=== PATIENT | female | born 1955 | race Caucasian/White ===

== ENCOUNTER → 2017-07-30 | Day surgery (SDC) | payer BC ==
[~2017-07-30] MED LIST: Acetaminophen/HYDROcodone 325-5 MG Tab PO PRN; Albuterol 0.083% 2.5 MG/3 ML Neb Soln NEB PRN; Cyclobenzaprine 10 MG Tab PO PRN; Dexamethasone 4 MG/ML 5 ML MDV ONE; EPINEPHrine 1 MG/ML 30 ML MDV ONE; EPINEPHrine 1 MG/ML SDV ONE; HYDROmorphone 0.5 MG/0.5 ML Syringe IVPUSH PRN; HYDROmorphone 0.5 MG/0.5 ML Syringe ONE; Ketorolac 30 MG/ML SDV ONE; Labetalol 100 MG/20 ML MDV ONE; Lactated Ringers 1,000 ML IV SCH; Lactated Ringers 1,000 ML ONE; Lidocaine 1% 4 ML ONE; Lidocaine 1%/Sod Bicarbonate in NS 8.4% 1 ML Syringe IDERM PRN; Midazolam 1 MG/ML 2 ML SDV ONE; Ondansetron 4 MG/2 ML SDV IVPUSH PRN; Ondansetron 4 MG/2 ML SDV ONE; Phenylephrine 1 MG in Sodium Chloride 0.9% 10 ML IV SCH; Propofol 200 MG/20 ML SDV ONE; Rocuronium 50 MG/5 ML Vial ONE; Ropivacaine 0.5% 5 MG/ML 30 ML SDV ONE; Sodium Chloride 0.9% 10 ML Syringe FLUSH PRN; ceFAZolin 1 GM Vial ONE; diphenhydrAMINE 50 MG/ML SDV IVPUSH PRN; ePHEDrine 50 MG/ML SDV IVPUSH PRN; fentaNYL 100 MCG/2 ML SDV IVPUSH PRN; fentaNYL 250 MCG/5 ML SDV ONE; hydrALAZINE 20 MG/ML SDV ONE
--- NOTE | 2017-07-30 08:20 | PCM.PREANE ---
Preanesthetic Assessment - Anesthesia/Transfusion/Family Hx Anesthesia History: Prior Anesthesia Without Reaction Family History of Anesthesia Reaction: No Transfusion History: No Prior Transfusion(s) Intubation History: Unknown - Review of Systems General: No Symptoms Pulmonary: No Symptoms (History of asthma: uses inhaler 1-2 times a month to every other month./weather dependent/seasonal allergies), Wheezing (on occasion) , Cough Cardiovascular: No Symptoms (History of HTN), Edema (on occasion in the lower extremities: none present today) Gastrointestinal: Constipation (concerns noted with pain medicaion) Neurological: No Symptoms (History of lower extremity edema) Other: Reports: Diabetes (AM blood [id number] @ 97), Thyroid Problems ( hypothyroid), Sinus Problem (History for past 3 weeks of sinus congestion and cough/resolved and better.) - Physical Assessment NPO Status Date: 07/29/17 NPO Status Time: 20:00 Pulse: 66 O2 Sat by Pulse Oximetry: 93 Respiratory Rate: 16 Blood Pressure: 139/82 Temperature: 36.3 C Height: 1.7 m Weight: 111 kg ASA Class: 2 Mental Status: Alert & Oriented x3 Airway Class: Mallampati = 2 Dentition: Reports: Normal Dentition, [place](s), Caries Thyro-Mental Finger Breadths: 3 Mouth Opening Finger Breadths: 3 ROM/Head Extension: Full Lungs: Clear to Auscultation, Normal Respiratory Effort Cardiovascular: Regular Rate, Regular Rhythm, No Murmurs - Lab Values: Laboratory Last Values MRSA (PCR) Negative 07/22/17 15:14 All lab values reviewed and noted and within acceptable ranges to proceed with scheduled procedure. - Imaging/EKG Impressions: EKG: SR rate= 67, first degree. CXR: unremarkable - Allergies Allergies/Adverse Reactions: Allergies Allergy/AdvReac Type Severity Reaction Status Date / Time No Known Allergies Allergy Verified 07/29/17 14:27 - Anesthesia Plan Pre-Op Medication Ordered: Beta Jasmyne Beta Jasmyne: Atenolol Med Last Dose Date: 07/30/17 Med Last Dose Time: 07:30 - Acknowledgements Anesthesia Type Planned: General Anesthesia (and a right interscalene block under US guidance for post operative pain control requested by Dr. Thompson.) Pt an Appropriate Candidate for the Planned Anesthesia: Yes Alternatives and Risks of Anesthesia Discussed w Pt/Guardian: Yes Pt/Guardian Understands and Agrees with Anesthesia Plan: Yes PreAnesthesia Questionnaire Cardiovascular History: Reports: Hypertension Respiratory History: Reports: Asthma Gastrointestinal History: Reports: Other (See Below) Other Gastrointestinal History: left inguinal hernia repair Genitourinary History: Reports: None [employer] TECH[employer]ICIAN History: Reports: None Musculoskeletal History: Reports: None Neurological History: Reports: None Psychiatric History: Reports: None Endocrine/Metabolic History: Reports: Diabetes, Type II, Hypothyroidism, Other ( See Below) Hematologic History: Reports: None Immunologic History: Reports: None Oncologic (Cancer) History: Reports: None Dermatologic History: Reports: Other (See Below) Other Dermatologic History: right lower leg surgery due3 to severe staph infection - Past Surgical History Head Surgeries/Procedures: Reports: None HEENT Surgical History: Reports: Tonsillectomy Cardiovascular Surgical History: Reports: Varicose Respiratory Surgical History: Reports: None GI Surgical History: Reports: Colonoscopy Female Surgical History: Reports: None Male Surgical History: Reports: None Endocrine Surgical History: Reports: None Neurological Surgical History: Reports: None Musculoskeletal Surgical History: Reports: None Oncologic Surgical History: Reports: None - SUBSTANCE USE Smoking Status *Q: Never Smoker Recreational Drug Use History: No - HOME MEDS Home Medications: Home Meds Albuterol [Proair HFA] 2 puff INH Q4H PRN 07/29/17 [History] Atenolol 25 mg PO DAILY 07/29/17 [History] Biotin 5,000 mcg PO DAILY 07/29/17 [History] Ca Carbonate/Vitamin D3/Vit K [Calcium + D Soft Chewable Tab] 2 tab PO DAILY [History] Fish Oil/Warren-3 Fatty Acids [Fish Oil 1,000 MG] 1 gm PO DAILY 07/29/17 [History ] Fluticasone Propionate [Flonase] 1 - 2 spray NASBOTH DAILY PRN 07/29/17 [History ] Furosemide 20 mg PO DAILY 07/29/17 [History] Levothyroxine 75 mcg PO DAILY 07/29/17 [History] Magnesium 250 mg PO DAILY 07/29/17 [History] Montelukast Sodium 10 mg PO DAILY 07/29/17 [History] Multivitamin [Daily Multiple Vitamin] 1 tab PO DAILY 07/29/17 [History] Potassium Gluconate 99 mg PO DAILY 07/29/17 [History] metFORMIN HCl [Metformin HCl] 500 mg PO BID 07/29/17 [History] - CURRENT (IN HOUSE) MEDS Current Meds: Current Medications Epinephrine HCl (Adrenalin) 3 mg .XX ONETIME ONE Stop: 07/30/17 11:46 Lactated Ringer's (Ringers, Lactated) 1,000 mls @ 125 mls/hr IV ASDIRECTED STACIE Stop: 07/30/17 23:00 Lidocaine/Sodium Bicarbonate (Buffered Lidocaine 1% In Ns 8.4%) 0.25 ml IDERM ONETIME PRN PRN Reason: Prior to IV Start Stop: 07/30/17 18:00 Sodium Chloride (Saline Flush) 10 ml FLUSH ASDIRECTED PRN PRN Reason: Keep Vein Open Stop: 07/30/17 18:00 Discontinued Medications Epinephrine HCl (Adrenalin) Confirm Administered Dose 1 mg .ROUTE .STK-MED ONE Stop: 07/30/17 07:35 Lidocaine HCl (Xylocaine-Mpf 1%) Confirm Administered Dose 4 mls @ as directed .ROUTE .STK-MED ONE Stop: 07/30/17 07:35 Ropivacaine (Naropin 0.5%) Confirm Administered Dose 30 ml .ROUTE .STK-MED ONE Stop: 07/30/17 07:35
--- NOTE | 2017-07-30 11:41 | PCM.SN ---
- Free Text/Narrative Note: Anesthesia Note: (Right Interscalene block note) Date: 07/30/2017 Time Out: 1115 Start: 1120 Stop: 1132 Surgical Procedure: Right Shoulder Video Arthroscopy with Rotator Cuff Repair, and Subacromial Decompression. Diagnosis Right Shoulder Rotator Cuff Tear Current Procedure: Right interscalene block under US guidance for postoperative pain control requested by Dr. Thompson. Patient chart reviewed, risk/benefits discussed with patient, consent obtained. Patient positioned supine, monitors/alarms on, oxygen placed via nasal cannula at 2 LPM. IV sedation administered: Versed 2mg IV @ 1117, Fentanyl 50mcg IV @ 1117 Right shoulder prepped with two chloropreps. Sterile drapes placed with aseptic technique noted. Under US guidance, right subclavian artery visualized along with the right brachial plexus. Plexus followed up to C6 cricoid level, and area localized with 2mls of 1% lidocaine. 22gauge 2 inch stimiplex needle advanced under US with 0.6mV with stimulation of biceps noted. Good stimulation noted with decreased voltage and absent at 0.2mVs. 1ml of Normal Saline injected with loss of stimulation noted to confirm needle not placed intraneurally. Incremental dosing of 5mls with negative aspiration noted prior to each injection of 0.5% ropivacaine with 1:200,000 epinephrine. Total volume=30mls. Please refer to nurses noted for vital signs. Tiffanie Henriquez CRNA
[2017-07-30] MEDS: Bupivacaine 0.25% 30 ML SDV ONE ×2 (12:50→13:45)
--- NOTE | 2017-07-30 14:29 | PCM.POSTAN ---
POST ANESTHESIA ASSESSMENT - MENTAL STATUS Mental Status: Alert - VITAL SIGNS Pulse Rate: 75 SaO2: 93 (7Lpm blow by) Resp Rate: 15 Blood Pressure: 163/68 Temperature: 36.2 C - RESPIRATORY Respiratory Status: Respiratory Rate WNL, Airway Patent, O2 Saturation Stable, Supplemental Oxygen - CARDIOVASCULAR CV Status: Pulse Rate WNL, Blood Pressure Stable - GASTROINTESTINAL GI Status: No Symptoms - POST OP HYDRATION Hydration Status: Adequate & Stable
--- NOTE | 2017-07-30 15:04 | PCM48HPAN ---
Post Anesthesia Note - EVALUATION WITHIN 48HRS OF ANESTHETIC Vital Signs in Normal Range: Yes Patient Participated in Evaluation: Yes Respiratory Function Stable: Yes Airway Patent: Yes Cardiovascular Function Stable: Yes Hydration Status Stable: Yes Pain Control Satisfactory: Yes Nausea and Vomiting Control Satisfactory: Yes Mental Status Recovered: Yes
--- NOTE | 2017-08-03 17:42 | PCM.OPNOTE ---
- General Post-Op/Procedure Note Date of Surgery/Procedure: 07/30/17 Operative Procedure(s): right shoulder video arthroscopy with rotator cuff repair and extensive debridement Pre Op Diagnosis: right shoulder rotator cuff tear Post-Op Diagnosis: Same Anesthesia Technique: General ET Tube, Regional Block Primary Surgeon: Chino Thompson Anesthesia Provider: Tiffanie Henriquez Cogeneration Technician: Marianne Zapata EBL in mLs: 10 Complications: None Condition: Good
--- NOTE | 2017-08-05 14:42 | OR ---
DATE OF OPERATION: 07/30/2017 SURGEON: Chino Thompson MD OPERATION PERFORMED: Right shoulder video arthroscopy with rotator cuff repair and extensive debridement. PREOPERATIVE DIAGNOSIS: Right shoulder rotator cuff tear. POSTOPERATIVE DIAGNOSIS: Right shoulder rotator cuff tear. ANESTHESIA: General endotracheal intubation with regional interscalene block. ANESTHESIA PROVIDER: Tiffanie Henriquez CRNA POSITION CLASSIFICATION MANAGER: Marianne Zapata LPN. ESTIMATED BLOOD LOSS: 10 mL. COMPLICATIONS: None. CONDITION: Stable. DESCRIPTION OF PROCEDURE: The patient was identified in the preoperative holding area, where proper site was marked and identified by the surgeon. The patient was taken back to the operating theater, where after adequate anesthesia, the patient was placed in the lazy left lateral decubitus position. A wedge was placed posteriorly. All bony prominences were well padded. The patient was secured to the table. Right upper extremity was then sterilely prepped and draped in the usual sterile fashion. OR time-out was performed. The patient received 2 g IV Ancef. At this time, 12 pounds of traction was applied to the right upper extremity. Standard posterior incision was made. Then, scope trocar was introduced in the glenohumeral joint. At this time, anterior portal was created with the use of a spinal needle, and a working portal was placed anteriorly. The patient was noted to have grade 1/2 chondromalacia of the glenoid as well as a small area of the anterior humerus. The patient was noted to have a supraspinatus tear as well as significant tear of the upper outer border of the subscapularis tendon. At this time, the biceps tendon was found to be intact, and the rest of the shoulder showed no signs of loose or foreign bodies. At this time, a FiberTape was passed through the upper outer border of the subscapularis tendon. A 4.75- mm Arthrex SwiveLock anchor was then opened. The punch was then used for this in the footprint of the subscapularis attachment on the lesser tuberosity. At this time, the suture limbs from the FiberTape were loaded, and the 4.75-mm Arthrex SwiveLock anchor was then placed. It was noted to have good watertight repair of the upper outer border of the subscapularis tendon. At this time, a significant debridement was done intra-articularly as the patient did have significant synovitis noted throughout. Once this was completed, attention was turned to the subacromial space. At this time, subacromial space was noted to have significant bursa and extensive debridement of the bursa and synovitis was then done at this time until we could see the rotator cuff. The rotator cuff was then identified. The patient was noted to have a [id number] tear of the supraspinatus. At this time, a good bony bleeding bed was created using 4.0 full radius resector. A 4.75-mm Arthrex SwiveLock anchor was then placed medially with 2 limbs of FiberTape and 2 limbs of FiberWire. The 2 limbs of FiberTape and 2 limbs of FiberWire were then passed through the tendon from anterior to posterior. The 2 limbs of FiberWire were then tied medially for a medial row repair and then all 4 suture limbs were brought out laterally. Another punch was used for 4.75-mm Arthrex SwiveLock anchor. All 4 limbs of the suture were then brought out through the eyelet. Tension was applied, and this anchor was then placed laterally for a watertight double-row repair. There was good compression across the repair site. The patient had a type 1 acromion, so there was no need for an acromioplasty, so at this time, excess saline was drained from the joint; 3-0 nylon simple suture was used for closure of the skin. The patient was placed in a sterile soft dressing and a pillow sling and sent to PACU in stable condition. ENRIQUE /[id number]
== END | disposition home or self-care (01) ==
LOC: JD.SDS 08:54
PROVIDERS: ATTEND Orthopaedic Surgery
DX: M75.101 Unspecified rotator cuff tear or rupture of right shoulder, not specified as traumatic (principal); I10 Essential (primary) hypertension; J45.909 Unspecified asthma, uncomplicated; E03.9 Hypothyroidism, unspecified; Z79.84 Long term (current) use of oral hypoglycemic drugs; Z79.899 Other long term (current) drug therapy
CPT/HCPCS: 29823; 29827; 64415; 82962; 87641; 94640; 94660; J0171; J0360; J0690; J1100; J1170; J1885; J2250; J2405; J2795; J3010; J3490; J7120; 01638; J2704

== ENCOUNTER 2019-02-15 21:27 | Emergency (ER) | payer BC ==
[2019-02-15] MEDS ORDERED: FLU Vacc QS2019-20(6MOS+)/PF 60 MCG/0.5 ML SYRINGE IM ONE (22:30)
--- NOTE | 2019-02-15 23:03 | EDM.PDOC ---
ED HPI GENERAL MEDICAL PROBLEM - General Chief Complaint: Neurological Problem Stated Complaint: DIZZY NAUSEA Time Seen by Provider: 02/15/19 22:27 Source of Information: Reports: Patient, Family () History Limitations: Reports: No Limitations - History of Present Illness INITIAL COMMENTS - FREE TEXT/NARRATIVE: Mrs. Henry is a very pleasant 63-year-old woman with no significant medical problems, who states that she has been feeling dizzy for about one week. By dizzy, the patient states that she feels lightheaded, not vertiginous. It is felt only if she is upright, but not every time that she is upright, only a few times per day, and only for a few seconds. Tonight, however, the dizziness was much more severe than usual, even though she was sitting down, and she had associated nausea and vomiting. No prior similar symptoms. The patient states that she experienced slight tinnitus this week, but denies having any recent ear pain or decreased hearing. No recent nasal or sinus congestion. She denies having any recent chest pain or palpitations, dyspnea or cough, constipation, diarrhea, abdominal pain, or urinary symptoms. She denies having any neurologic symptoms, such as tingling, numbness, or weakness. She denies feeling anxious. The patient reports that she had a very mild headache after having a root canal about 2 weeks ago. The patient's PCP is Dr. Rizwana Dailey. - Related Data Allergies Allergy/AdvReac Type Severity Reaction Status Date / Time No Known Allergies Allergy Verified 02/15/19 22:10 Home Meds: Home Meds Albuterol [Proair HFA] 1 - 2 puff INH Q4H PRN 07/29/17 [History] Atenolol 25 mg PO DAILY 07/29/17 [History] Ca Carbonate/Vitamin D3/Vit K [Calcium + D Soft Chewable Tab] 2 tab PO DAILY [History] Fish Oil/[place]-3 Fatty Acids [Fish Oil 1,000 MG] 2 gm PO DAILY 07/29/17 [History ] Furosemide 20 mg PO DAILY 07/29/17 [History] Levothyroxine 75 mcg PO DAILY 07/29/17 [History] Magnesium 250 mg PO DAILY 07/29/17 [History] Montelukast Sodium 10 mg PO DAILY 07/29/17 [History] Multivitamin [Daily Multiple Vitamin] 1 tab PO DAILY 07/29/17 [History] Potassium Gluconate 99 mg PO DAILY 07/29/17 [History] metFORMIN HCl [Metformin HCl] 500 mg PO BID 07/29/17 [History] Ondansetron [Zofran ODT] 1 tab PO Q8H PRN #10 tab.dis 02/16/19 [Rx] Past Medical History Cardiovascular History: Reports: Hypertension Respiratory History: Reports: Asthma (suspected, not tested) Musculoskeletal History: Reports: Arthritis Endocrine/Metabolic History: Reports: Hypothyroidism, Obesity/BMI 30+, Other ( See Below) (Prediabetes) - Past Surgical History HEENT Surgical History: Reports: Adenoidectomy, Tonsillectomy Cardiovascular Surgical History: Reports: Varicose (sclerosis) GI Surgical History: Reports: Colonoscopy, Hernia, Inguinal (right) Female Surgical History: Reports: Tubal Ligation Musculoskeletal Surgical History: Reports: Shoulder Surgery (right, arthroscopic ) Social & Family History - Tobacco Use Smoking Status *Q: Never Smoker - Caffeine Use Caffeine Use: Reports: Soda - Alcohol Use Alcohol Use History: Yes Alcohol Use Frequency: Rarely - Recreational Drug Use Recreational Drug Use: No - Living Situation & Occupation Living situation: Reports: , with Spouse 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 ED EXAM, DIZZINESS - Physical Exam Exam: See Below Exam Limited By: No Limitations General Appearance: Alert, WD/WN, No Apparent Distress Eye Exam: Bilateral Eye: EOMI, Normal Inspection, PERRL Nystagmus: No: reproducible Ears: Normal External Exam, Normal Canal, Hearing Grossly Normal, Normal TMs Nose: Normal Inspection, Normal Mucosa, No Blood Throat/Mouth: Normal Inspection, Normal Lips, Normal Teeth, Normal Gums, Normal Oropharynx, Normal Voice, No Airway Compromise Head Exam: Atraumatic, Normocephalic Vertigo: No: reproducible Neck: Normal Inspection, Supple, Non-Tender, Full Range of Motion. No: Lymphadenopathy (L), Lymphadenopathy (R) Respiratory/Chest: No Respiratory Distress, Lungs Clear, Normal Breath Sounds, No Accessory Muscle Use Cardiovascular: Normal Peripheral Pulses, Regular Rate, Rhythm, No Gallop, No JVD, No Murmur, No Rub GI/Abdominal: Normal Bowel Sounds, Soft, Non-Tender, No Organomegaly, No Distention, No Abnormal Bruit, No Mass (Female) Exam: Deferred Rectal (Female) Exam: Deferred Neurological: Alert, Normal Dorsiflexion, CN II-XII Intact, Normal Plantar Flexion, No Motor/Sensory Deficits, Oriented x 3, Other (Ross-Hallpike maneuvers failed to induce nystagmus or increased symptoms, either side) Back Exam: Normal Inspection, Full Range of Motion, NT Extremities: Normal Inspection, Normal Range of Motion, No Pedal Edema, Normal Capillary Refill Psychiatric: Normal Affect Skin Exam: Warm, Dry, Intact, Normal Color, No Rash EKG INTERPRETATION EKG Date: 02/15/19 Time: 23:01 Rhythm: NSR Rate (Beats/Min): 74 [place]: Normal P-Wave: Enlarged (1 AVB present. ?BANDAR) QRS: Normal ST-T: Normal QT: Normal Comparison: No Change (05/05/2016) Course - Vital Signs Last Recorded V/S: Last Vital Signs Temp Pulse 76 02/15/19 22:07 Resp 16 02/15/19 22:07 BP 157/76 H 02/15/19 22:07 Pulse Ox 99 02/15/19 22:07 Orthostatic Blood Pressure [] 180/80 Orthostatic Blood Pressure [] 140/68 - Orders/Labs/Meds Orders: Active Orders 24 hr Category Date Time Status EKG Documentation Completion [RC] STAT Care 02/15/19 22:58 Active Influenza Vaccine Charge [RC] .DISCHARGE Care 02/15/19 22:12 Active Orthostatic Vital Signs [RC] STAT Care 02/15/19 22:57 Active Labs: Laboratory Tests 02/15/19 02/15/19 02/15/19 Range/Units 23:27 23:27 23:27 WBC 12.73 H (3.98-10.04) K/mm3 RBC 4.90 (3.98-5.22) M/mm3 Hgb 13.6 (11.2-15.7) gm/dl Hct 42.3 (34.1-44.9) % MCV 86.3 (79.4-94.8) fl MCH 27.8 (25.6-32.2) pg MCHC 32.2 (32.2-35.5) g/dl RDW Std Deviation 44.1 (36.4-46.3) fL Plt Count 222 (182-369) K/mm3 MPV 10.2 (9.4-12.3) fl Neut % (Auto) 74.0 H (34.0-71.1) % Lymph % (Auto) 16.1 L (19.3-51.7) % Hayes % (Auto) 8.0 (4.7-12.5) % Eos % (Auto) 1.1 (0.7-5.8) Baso % (Auto) 0.3 (0.1-1.2) % Neut # (Auto) 9.42 H (1.56-6.13) K/mm3 Lymph # (Auto) 2.05 (1.18-3.74) K/mm3 Hayes # (Auto) 1.02 H (0.24-0.36) K/mm3 Eos # (Auto) 0.14 (0.04-0.36) K/mm3 Baso # (Auto) 0.04 (0.01-0.08) K/mm3 Manual Slide Review Abnormal smear D-Dimer, Quantitative 0.50 (0.19-0.50) mg/L Sodium 143 (136-145) mEq/L Potassium 3.3 L (3.5-5.1) mEq/L Chloride 106 (98-107) mEq/L Carbon Dioxide 29 (21-32) mEq/L Anion Gap 11.3 (5-15) BUN 16 (7-18) mg/dL Creatinine 0.9 (0.55-1.02) mg/dL Est Cr Clr Drug Dosing 65.38 mL/min Estimated GFR (MDRD) > 60 (>60) mL/min BUN/Creatinine Ratio 17.8 (14-18) Glucose 135 H (80-115) mg/dL Calcium 9.4 (8.5-10.1) mg/dL Magnesium 1.9 (1.8-2.4) mg/dl Total Bilirubin 0.3 (0.2-1.0) mg/dL AST 13 L (15-37) U/L ALT 23 (14-59) U/L Alkaline Phosphatase 78 (46-116) U/L Troponin I < 0.017 (0.00-0.056) ng/mL Total Protein 6.9 (6.4-8.2) g/dl Albumin 3.7 (3.4-5.0) g/dl Globulin 3.2 gm/dL Albumin/Globulin Ratio 1.2 (1-2) TSH 3rd Generation 3.178 (0.358-3.74) uIU/mL Meds: Medications Discontinued Medications Generic Name Dose Route Start Last Admin Trade Name Daria PRN Reason Stop Dose Admin Influenza Virus Vaccine 60 mcg 02/15/19 22:30 02/15/19 22:28 Fluzone Quad Syringe IM 02/15/19 22:31 60 mcg .ONCE ONE Administration - Re-Assessments/Exams Free Text/Narrative Re-Assessment/Exam: 02/15/19 22:59 The etiology of the patient's symptoms is not immediately clear. Because she complained of nausea and vomiting tonight associated with her dizziness, I was concerned that she might be suffering from vertigo, perhaps due to BPPV, however , her [place]-Hallpike failed to induce either symptoms or nystagmus, and the patient states that she thinks her symptoms are more consistent with lightheadedness than vertigo. I have therefore ordered a workup that includes orthostatics, a CBC, CMP, magnesium level, troponin, D-dimer and TSH, along with an ECG. 02/16/19 00:20 The patient's CBC is remarkable for a WBC count modestly elevated at 12.73, with 74% neutrophilia. The remainder of her CBC is unremarkable. Her CMP is remarkable for a potassium slightly depressed at 3.3 and a blood glucose slightly elevated at 108, with the remainder of her CMP being unremarkable. Her magnesium level is within normal limits at 1.9. Her troponin is undetectably low. Her D-dimer is within normal limits at 0.50. Her TSH is within normal limits at 3.178. 02/16/19 00:27 The patient is not orthostatic. 02/16/19 00:36 Test results discussed with the patient and her . Today's workup is unremarkable, and does not explain the cause of her symptoms. I recommended that she follow-up with her PCP to discuss further evaluation that could include an MRI of the brain to rule out a tumor. I explained that because her neurologic examination tonight was normal, an emergency CT scan of her head was not indicated, as the likelihood of finding an abnormality that would require emergency treatment is extremely low, however, that does not mean that an outpatient MRI would not be indicated. The patient seemed to understand this distinction. I will discharge her home with a prescription for Zofran; she denies having nausea at this time. Departure - Departure Time of Disposition: 00:38 Disposition: Home, Self-Care 01 Condition: Good Clinical Impression: Dizziness, Nausea and vomiting - Discharge Information *PRESCRIPTION DRUG MONITORING PROGRAM REVIEWED*: Not Applicable *COPY OF PRESCRIPTION DRUG MONITORING REPORT IN PATIENT MYRNA: Not Applicable Prescriptions: Ondansetron [Zofran ODT] 1 tab PO Q8H PRN #10 tab.dis PRN Reason: Nausea/Vomiting Instructions: Nausea, Adult, [id number], Dizziness Referrals: Rizwana Dailey MD [Primary Care Provider] - Forms: ED Department Discharge Additional Instructions: You were seen in the emergency room after exposing one week of dizziness, along with nausea and vomiting tonight. Workup in the ER included blood work, positional blood pressure checks, and an ECG. Your entire workup was unremarkable, and does not explain the cause of your symptoms. Your neurologic exam was found to be normal. You are not dehydrated, and you do not have any significant electrolyte abnormalities. You are not anemic. You have not suffered a heart attack. You do not have a blood clot in your lungs. Your thyroid level is within normal limits. No abnormal rhythms were found on your ECG. A prescription for the anti-nausea medicine Zofran has been sent to the [facility], located in the [place] store. Dissolve one tablet of Zofran on your tongue up to every 8 hours, as needed for nausea/vomiting. If your symptoms persist, we recommend that you follow-up with your PCP, Dr. Rizwana Dailey, for further evaluation, that might include an MRI of your brain. If any other problems, please do not hesitate to return to the ER. *You received an influenza vaccine during your ER visit.* - My Orders Last 24 Hours: My Active Orders 02/15/19 22:12 Influenza Vaccine Charge [RC] .DISCHARGE 02/15/19 22:57 Orthostatic Vital Signs [RC] STAT 02/15/19 22:58 EKG Documentation Completion [RC] STAT - Assessment/Plan Last 24 Hours: My Active Orders 02/15/19 22:12 Influenza Vaccine Charge [RC] .DISCHARGE 02/15/19 22:57 Orthostatic Vital Signs [RC] STAT 02/15/19 22:58 EKG Documentation Completion [RC] STAT
== END 2019-02-16 01:00 | disposition home or self-care (01) ==
LOC: JD.ED 21:27
DX: R42 Dizziness and giddiness (principal); R11.2 Nausea with vomiting, unspecified; I10 Essential (primary) hypertension; J45.909 Unspecified asthma, uncomplicated; E03.9 Hypothyroidism, unspecified; Z23 Encounter for immunization; Z79.899 Other long term (current) drug therapy; Z79.84 Long term (current) use of oral hypoglycemic drugs
CPT/HCPCS: 36415; 80053; 83735; 84443; 84484; 85025; 85379; 90686; 93005; 93010; 99283; 99284-25; G0008